=== PATIENT | male | born 1950 | race Caucasian/White ===

== ENCOUNTER 2019-04-23 17:45 | Emergency (ER) | payer MEDICARE, MEDICAID ==
[~2019-04-23] VITALS: Ht 177.8 cm; Wt 81.7 kg
[~2019-04-23 17:45] MED LIST: ADULT TUSS100 MG/5 M PO; ALLERGY RELIEF10 M3 PO; APAP500 PO; BACTRIM DS TAB1 EACH PO; BACTROBAN NASAL1 GM NS; CALCIUM + VITA1 EACH PO; CALCIUM 600 +1 EAC7 PO; CALCIUM ANTACI400 MG PO; CALCIUM PO; CARAFATE1 GM/10 ML PO; CLONAZEPAM PO; CRESTOR20 MG PO; FLOMAX0.4 MG PO; GLYCOLAX POWDER17 G1 PO; HYDROCODON-ACE1 EACH PO; HYDROCODONE-AP1 EAC6 PO; HYTRIN 1 MG CAP1 MG PO; HYTRIN10 MG PO; IBUPROFEN 400400 M1 PO; IBUPROFEN200 M1 PO; KLONOPIN0.5 MG PO; LEVAQUIN 500 M500 M4 PO; LEVOTHROID PO; LEVOXYL100 MCG PO; LEXAPRO 10 MG T10 M1 PO; LEXAPRO PO; LISINOPRIL10 MG PO; LOPERAMIDE 2 MG2 MG PO; LOPERAMIDE2 MG PO; MUCINEX DM ER1 EAC1 PO; MUCINEX600 MG PO; OXCARBAZEPINE600 MG PO; PAIN RELIEF500 MG PO; POLYETHYLENE G255 GM PO; PREDNISONE50 MG PO; PROAIR HFA8.5 GM INH; PROCTO PAK RECTAL; PROSCAR 5MG TABL5 M1 PO; PROTONIX40 M2 PO; QUETIAPINE FUM100 MG PO; RIFAMPIN 300 M300 M1 NG; ROBITUSSIN100 MG/5 M PO; SEROQUEL 100 M100 MG PO; SEROQUEL200 MG PO; SIMVASTATIN80 MG PO; TRILEPTAL600 MG PO; TUMS PO
[2019-04-23 18:51] LABS: ABSOLUTE EOSINOPHILS 0.1 thou/uL (0.0-0.7); ABSOLUTE LYMPHOCYTES 2.4 thou/uL (0.8-5.3); ABSOLUTE MONOCYTES 0.6 thou/uL (0.0-1.2); ABSOLUTE NEUTROPHILS 2.1 thou/uL (1.6-8.1); BASOPHILS 0.6 %; EOSINOPHILS 2.8 %; HEMATOCRIT 42.4 % (42.0-52.0); HEMOGLOBIN 14.5 gm/dL (14.0-18.0); LYMPHOCYTES 45.7 %; MCH 32.9 pg (26.0-34.0); MCHC 34.3 g/dL (28.0-37.0); MCV 95.9 fL (80.0-100.0); MONOCYTES 10.9 %; MPV 6.6 fl. (7.2-11.1); NUCLEATED RBCS 0 /100WBC; PLATELET COUNT* 199 thou/uL (150-400); RBC 4.42 mil/uL (4.50-6.00); RDW-CV 13.7 % (10.5-14.5); WBC 5.1 thou/uL (4.0-11.0)
[2019-04-23 18:54] LABS: CALCIUM 8.7 mg/dL (8.5-10.1); CREATININE 1.1 mg/dL (0.6-1.3); POTASSIUM 4.2 mmol/L (3.5-5.1)
[2019-04-23 18:58] LABS: ALBUMIN 4.2 g/dL (3.4-5.0); TOTAL BILIRUBIN 0.1 mg/dL (<0.1-1.0); TOTAL PROTEIN 7.8 g/dL (6.4-8.2)
[2019-04-23] MEDS ORDERED: ALIGN4 MG PO (19:03)
[2019-04-23] MEDS ORDERED: BREO ELLIPTA 11 EACH INH (19:05)
[2019-04-23] MEDS ORDERED: NEXIUM40 MG PO (19:06)
[2019-04-23] MEDS ORDERED: ZYRTEC10 M5 PO (19:06)
[2019-04-23] MEDS ORDERED: DIFLUCAN200 MG PO (19:07)
[2019-04-23] MEDS ORDERED: TYLENOL EXTRA500 MG PO (19:08)
[2019-04-23 20:47] LABS: SALICYLATE < 2.8 mg/dL (2.8-20.0)
[2019-04-23 20:48] LABS: ACETAMINOPHEN < 2 ug/mL (10-30)
[2019-04-23 21:09] VITALS: BP 140/86
== END 2019-04-23 21:09 | disposition home or self-care (01) ==
LOC: M.ERS 17:45
PROVIDERS: Emergency Medicine; Family Medicine
DX: R41.82 Altered mental status, unspecified (principal); F63.81 Intermittent explosive disorder; I10 Essential (primary) hypertension; E78.00 Pure hypercholesterolemia, unspecified; K21.9 Gastro-esophageal reflux disease without esophagitis; E78.5 Hyperlipidemia, unspecified; E03.9 Hypothyroidism, unspecified; Z86.14 Personal history of Methicillin resistant Staphylococcus aureus infection; Z86.73 Personal history of transient ischemic attack (TIA), and cerebral infarction without residual deficits